=== PATIENT | female | born 2000 | race Two or more races ===

== ENCOUNTER 2019-06-10 11:25 | Inpatient (IN) | payer OTHER ==
[~2019-06-10] VITALS: Ht 162.6 cm; Wt 90.4 kg
[2019-06-10] VITALS (24 sets, daily range): BP systolic 120–173; BP diastolic 64–97
[2019-06-10] MEDS ORDERED: PRENTAB9 PO (11:50)
[2019-06-10] MEDS ORDERED: LACTATED RINGER'S 1000 ML IV STA (12:25)
[2019-06-10] MEDS ORDERED: LR 1,000 ML IV SCH (12:25)
[2019-06-10] MEDS ORDERED: OXYTOCIN 30 UNITS IN 0.9% NaCl 500ML IV BAG (J2590) As Ordered ONE (12:35)
[2019-06-10] MEDS ORDERED: FENTANYL 2MCG/ML ROPIVACAINE 0.2% IN 0.9% NACL 100ML IVBAG As Ordered ONE (12:35)
[2019-06-10 12:44] LABS: HEMATOCRIT 37.9 % (36.0-47.0); HEMOGLOBIN 12.1 g/dl (12.0-15.5); MEAN CORPUSCULAR HGB CONC 31.9 g/dl (32.0-36.5); MEAN CORPUSCULAR VOLUME 81.5 fl (80.0-96.0); PLATELET COUNT, AUTOMATED 208 10^3/uL (150-450); RED BLOOD COUNT 4.65 10^6/uL (4.00-5.40); WHITE BLOOD COUNT 11.5 10^3/uL (4.0-10.0)
[2019-06-10] MEDS ORDERED: EPIDURAL COMMENT XX SCH (13:30)
[2019-06-10] MEDS ORDERED: NALOXONE INJ 0.4 MG/1 ML VIAL (J2310) IV PRN (13:30)
[2019-06-10] MEDS ORDERED: EPIDURAL/PCA KEYS XX PRN (13:30)
[2019-06-10] MEDS ORDERED: ONDANSETRON 4MG/2ML VIAL (J2405) IV PRN (13:30)
[2019-06-10] MEDS ORDERED: REFRIGERATOR IV KEYS XX PRN (13:30)
[2019-06-10] MEDS ORDERED: FENTANYL/ROPIVACAINE/NACL BAG 100 ML EPIDURAL SCH (13:30)
[2019-06-10] MEDS ORDERED: diphenhydrAMINE INJ 50MG/ML VIAL (J1200) IV PRN (13:30)
[2019-06-10] MEDS ORDERED: LACTATED RINGER'S 1000 ML IV PRN (13:30)
[2019-06-10] MEDS ORDERED: ePHEDrine SULFATE 25 MG/5 ML(5MG/ML) SYRINGE IV PRN (13:30)
[2019-06-10] MEDS ORDERED: MOM 30ML SUSPENSION UDC PO PRN (14:45)
[2019-06-10] MEDS ORDERED: DOCUSATE SODIUM 100 MG CAP PO PRN (14:45)
[2019-06-10] MEDS ORDERED: DIBUCAINE 1% OINTMENT 30GM TOP PRN (14:45)
[2019-06-10] MEDS ORDERED: RHOGAM 300 MCG (1500 IU) INJ (J2790) IM SCH (14:45)
[2019-06-10] MEDS ORDERED: METHYLERGONOVINE MALEATE 0.2 MG TAB PO PRN (14:45)
[2019-06-10] MEDS ORDERED: OXYTOCIN DRIP 30 UNITS in APPROPRIATE DILUENT 1 EA IV ONE (16:15)
[2019-06-10] MEDS: ACETAMINOPHEN 500 MG TAB PO PRN (20:10)
[2019-06-10] MEDS: IBUPROFEN 800 MG TAB PO PRN (23:20)
[2019-06-11] MEDS: ACETAMINOPHEN 500 MG TAB PO PRN ×2 (05:25→22:51)
[2019-06-11 05:55] VITALS: BP 121/60
[2019-06-11] MEDS: PRENATAL VITAMINS CHEWABLE TABLET PO SCH (08:05)
[2019-06-11] MEDS: IBUPROFEN 800 MG TAB PO PRN (15:39)
--- NOTE | 2019-06-11 15:40 | IPN ---
DATE OF SERVICE: 06/10/2019 This lady is a 19-year-old, 1, now para 1, admitted at 38 and 4 weeks of gestation with spontaneous rupture of membranes and contractions. She had a spontaneous vaginal delivery of a live male 7 pounds 4 ounces (3280 grams), of 9 and 9 at one and five minutes, respectively. On her first day her hemoglobin 12.1, hematocrit 37.9 and platelets were 208. Her vital signs, her blood pressure is 121/60, respirations 17, pulse 75, temperature 97.8. Rest of the examination unremarkable. Normocephalic, atraumatic. Neck full range of motion. Pupils equal and reactive to light. Distal pulses symmetric. No evidence of deep venous thrombosis (DVT), pulmonary embolism (PE) or superficial phlebitis. Chest is clear bilaterally at bases. No wheezes or rhonchi. No costovertebral angle (CVA) tenderness. Abdomen soft. Uterus 2 below. Lochia is moderate. Four quadrant bowel sounds are normal and perineum is intact. No rashes, lesions or pruritus. No arthralgia or myalgia. No complaint of joint pain. No complaint of cough, wheeze, shortness of breath, or dyspnea on exertion. No nausea, vomiting, diarrhea, or constipation. No urgency or frequency. In summary, we have a term gestation delivered a live male infant pending discharge tomorrow requesting oral contraceptives and long-term control and medications will be dispensed at discharge.
[2019-06-11 18:00] VITALS: BP 124/65
[2019-06-12] MEDS: IBUPROFEN 800 MG TAB PO PRN (04:57)
[2019-06-12 05:36] VITALS: BP 131/68
[2019-06-12] MEDS ORDERED: ACET-683 PO (07:10)
[2019-06-12] MEDS ORDERED: IBUP80TA PO (07:10)
[2019-06-12] MEDS: PRENATAL VITAMINS CHEWABLE TABLET PO SCH (07:48)
== END 2019-06-12 12:05 | disposition home or self-care (01) | DRG 807 ==
LOC: M LDO 11:25 → M LDI 12:15 → M OBS 17:04
PROVIDERS: ADMIT Advanced Practice Midwife; ATTEND Advanced Practice Midwife
PROC: 10E0XZZ Delivery of Products of Conception, External Approach (ICD-10-PCS; principal; 2019-06-10)
DX: O69.81X0 Labor and delivery complicated by cord around neck, without compression, not applicable or unspecified (principal); Z37.0 Single live birth; Z3A.38 38 weeks gestation of pregnancy; O69.82X0 Labor and delivery complicated by other cord entanglement, without compression, not applicable or unspecified

== ENCOUNTER 2019-06-14 18:24 | Emergency (ER) | payer OTHER ==
[~2019-06-14] VITALS: Ht 162.6 cm; Wt 89.1 kg
[~2019-06-14 18:24] MED LIST: ACET-683 PO; IBUP80TA PO; PRENTAB9 PO
[2019-06-14 19:11] LABS: BASO % 0.2 % (0.0-1.0); EOS # 0.1 10^3/uL (0.0-0.50); EOS % 1.2 % (0.0-3.0); HEMOGLOBIN 12.1 g/dl (12.0-15.5); LYMPH # 1.5 10^3/uL (1.5-6.5); LYMPH % 15.2 % (24.0-44.0); MEAN CORPUSCULAR HEMOGLOBIN 26.5 pg (27.0-33.0); MEAN CORPUSCULAR HGB CONC 31.8 g/dl (32.0-36.5); MEAN CORPUSCULAR VOLUME 83.3 fl (80.0-96.0); MONO # 0.5 10^3/uL (0.0-0.8); MONO % 4.7 % (0.0-5.0); NEUTROPHILS # 7.9 10^3/uL (1.8-7.7); PLATELET COUNT, AUTOMATED 263 10^3/uL (150-450); RED BLOOD COUNT 4.56 10^6/uL (4.00-5.40); WHITE BLOOD COUNT 10.2 10^3/uL (4.0-10.0)
[2019-06-14] MEDS ORDERED: NS 1,000 ML IV ONE (19:15)
[2019-06-14] MEDS ORDERED: HYDROMORPHONE HCL 0.5 MG/ 0.5 ML SYRINGE (J1170 PER 1) IV PRN (19:15)
[2019-06-14 19:34] LABS: ALBUMIN 2.9 GM/DL (3.2-5.2); ALT/SGPT 51 U/L (12-78); BILIRUBIN,TOTAL 0.4 MG/DL (0.2-1.0); BLOOD UREA NITROGEN 9 MG/DL (7-18); CALCIUM LEVEL 8.8 MG/DL (8.5-10.1); CARBON DIOXIDE LEVEL 23 MEQ/L (21-32); CHLORIDE LEVEL 107 MEQ/L (98-107); CREATININE FOR GFR 0.69 MG/DL (0.55-1.30); GLUCOSE, FASTING 92 MG/DL (70-100); POTASSIUM SERUM 3.5 MEQ/L (3.5-5.1); SODIUM LEVEL 140 MEQ/L (136-145); TOTAL PROTEIN 7.5 GM/DL (6.4-8.2)
[2019-06-14] MEDS ORDERED: KETOROLAC 30 MG/ML VIAL (J1885) IV ONE (20:15)
[2019-06-14] MEDS ORDERED: ISOVUE-370 76% 100ML VIAL (Q9967) As Ordered ONE (22:33)
--- NOTE | 2019-06-14 22:47 | REPVR ---
EXAM: US Pelvis Complete, Transabdominal EXAM DATE/TIME: 06/14/2019 9:24 PM CLINICAL HISTORY: 19 years old, female; Pelvic pain; Additional info: Pain/bleeding/post TECHNIQUE: Imaging protocol: Real-time transabdominal pelvic ultrasound with image documentation. Complete exam. COMPARISON: No relevant prior studies available. FINDINGS: Uterus/cervix: The uterus measures 16.5 cm in its cephalocaudad dimension and 7.7 x 9.7 cm in its AP and lateral dimensions consistent with state. The endometrium measures 14 mm. Right adnexa: The right ovary is not seen. Left adnexa: The left ovary measures 4.0 x 2.9 x 2.8 cm and demonstrates blood flow. Free fluid: None. IMPRESSION: 1. Large uterus consistent with state. 2. Otherwise negative pelvic sonogram. The endometrium measures 14 mm. The right ovary is not seen. Electronically signed by: Howard Dozier On 06/14/2019 22:47:20 PM
--- NOTE | 2019-06-14 23:13 | REPVR ---
EXAM: CT Abdomen and Pelvis With Contrast EXAM DATE/TIME: 06/14/2019 10:48 PM CLINICAL HISTORY: 19 years old, female; Abdominal pain; Prior surgery; Surgery date: 3-7 days post-operative TECHNIQUE: Imaging protocol: Computed tomography images of the abdomen and pelvis with intravenous contrast. Radiation optimization: All CT scans at this facility use at least one of these dose optimization techniques: automated exposure control; mA and/or kV adjustment per patient size (includes targeted exams where dose is matched to clinical indication); or iterative reconstruction. Contrast material: ISOVUE 370; Contrast volume: 100 ml; Contrast route: IV; COMPARISON: US [facility] 06/14/2019 9:17 PM FINDINGS: Liver: Normal. No mass. Gallbladder and bile ducts: Normal. No calcified stones. No ductal dilation. Pancreas: Normal. No ductal dilation. Spleen: Normal. No splenomegaly. Adrenals: Normal. No mass. Kidneys and ureters: Normal. No hydronephrosis. Stomach and bowel: Normal. No obstruction. No mucosal thickening. Appendix: A normal appendix is seen. Intraperitoneal space: Normal. No free air. No significant fluid collection. Vasculature: Normal. No abdominal aortic aneurysm. Lymph nodes: Normal. No enlarged lymph nodes. Bladder: Unremarkable as visualized. Reproductive: Large uterus measuring 16.1 cm in its cephalocaudad dimension and 8.5 cm in its AP dimension consistent with state. Bones/joints: No acute fracture. No dislocation. Soft tissues: Small fat filled umbilical hernia. Dense breasts consistent with lactating state. IMPRESSION: 1. Findings consistent with state. 2. Negative CT abdomen/pelvis. Electronically signed by: Howard Dozier On 06/14/2019 23:12:49 PM
[2019-06-15 00:20] VITALS: BP 131/77
--- NOTE | 2019-06-15 10:47 | ED PDOC ---
Post-Departure Follow-Up ft darryn ob faxed formal report of ct abd/p for u johnnieg Lopez Khan MD Jun 15, 2019 10:47
== END 2019-06-15 00:32 | disposition home or self-care (01) ==
LOC: M ED 18:24
DX: R50.9 Fever, unspecified (principal); R10.9 Unspecified abdominal pain; Z79.899 Other long term (current) drug therapy
CPT/HCPCS: 36415; 74177; 76856; 80053; 81001; 83605; 85025; 87040; 87086; 96374; 99285; J1885; Q9967